=== PATIENT | female | born 1950 | race Caucasian/White ===

== ENCOUNTER → 2018-11-09 | Outpatient (CLI) | payer MEDICARE, OTHER ==
--- NOTE | 2018-11-09 14:44 | Diagnostic Imaging Report ---
CT of the chest, without contrast, 11/09/2018. History: Hypertension, cough. Abnormal lung finding. Comparison: Chest x-ray 05/01/2010. Technique: Multidetector CT scanning of the chest was performed from the level of the apices to the upper abdomen without contrast. Coronal and sagittal multiplanar reformations were obtained. RADIATION DOSE: Total DLP: 441 mGy*cm Dose modulation, iterative reconstruction, and/or weight based adjustment of the mA/kV was utilized to reduce the radiation dose to as low as reasonably achievable. Discussion: Evaluation is limited without IV contrast. Chest: The heart and aorta are normal in size. There is calcification of the coronary arteries. The main pulmonary artery is dilated measuring 3.3 cm in diameter. Subcentimeter nonspecific nodes are scattered throughout the mediastinum. There is biapical pleural thickening and upper lobe scarring. A 1.0 x 1.6 cm nodular opacity is seen in the left apex adjacent to the areas of scarring. Multiple micronodular opacities are present throughout both lungs as well as mild cylindrical bronchiectasis and peripheral scarring. There is no evidence of consolidation or pleural effusion. Limited evaluation of the upper abdomen shows normal adrenal glands. Bones and soft tissues: No acute abnormality. There is scoliosis and degenerative disease of the thoracolumbar spine. Spinal stimulator is present. Postoperative changes are noted in the lumbar spine. IMPRESSION: Extensive bilateral scarring with left apical nodule. Recommend further evaluation with PET/CT. Signed by: Noé Stephenson on 11/09/2018 2:41 PM
== END ==
LOC: CT 10:46
PROVIDERS: ATTEND Emergency Medicine
DX: R91.8 Other nonspecific abnormal finding of lung field (principal)
CPT/HCPCS: 71250

== ENCOUNTER 2018-12-24 12:57 | Outpatient (RCR) | payer MEDICARE, OTHER ==
[2018-12-25] MEDS ORDERED: LIDOCAINE VISC 2% SOLN 15 ML UDC ONE (14:38)
[2018-12-25] MEDS ORDERED: MUPIROCIN 2% OINT 22 GM TUBE ONE (14:38)
[2018-12-25] MEDS ORDERED: COLLAGENASE OINTMENT 30 GM TUBE ONE (14:38)
== END 2018-12-30 ==
LOC: WCC 12:57
PROVIDERS: ATTEND Internal Medicine Infectious Disease
DX: S51.001A Unspecified open wound of right elbow, initial encounter (principal); I10 Essential (primary) hypertension; J44.9 Chronic obstructive pulmonary disease, unspecified; E78.5 Hyperlipidemia, unspecified; E03.9 Hypothyroidism, unspecified; M06.9 Rheumatoid arthritis, unspecified; M17.11 Unilateral primary osteoarthritis, right knee; M81.8 Other osteoporosis without current pathological fracture; W18.49XA Other slipping, tripping and stumbling without falling, initial encounter